=== PATIENT | female | born 1995 | race Caucasian/White ===

== ENCOUNTER 2018-06-14 10:38 | Emergency (ER) | payer OTHER ==
[2018-06-14] MEDS ORDERED: CIPROFLOXACN0.3 % OU (11:10)
[2018-06-14 11:36] LABS: INFLUENZA A NONE DETECTED (NONE DETECT); INFLUENZA B NONE DETECTED (NONE DETECT)
[2018-06-14 11:46] VITALS: BP 101/61
== END 2018-06-14 11:51 | disposition home or self-care (01) ==
LOC: ED 10:38
PROVIDERS: Family Medicine
DX: O99.512 Diseases of the respiratory system complicating pregnancy, second trimester (principal); J06.9 Acute upper respiratory infection, unspecified; H10.9 Unspecified conjunctivitis; Z3A.26 26 weeks gestation of pregnancy